=== PATIENT | female | born 1985 | race Caucasian/White ===

== ENCOUNTER → 2019-07-20 | Outpatient (CLI) | payer MEDICAID ==
--- NOTE | 2019-07-20 16:28 | KCIC ---
EXAM: Obstetrics sonogram. HISTORY: dates assessment and anatomy survey. TECHNIQUE: Sonographic imaging of a gravid uterus was performed. COMPARISON: None. FINDINGS: There is a single intrauterine fetus in breech presentation with a normal heart rate of 153 bpm. There is body motion. There is a three-vessel vocal cord with normal insertion. The stomach, kidneys, bladder and spine are unremarkable. The ventricular outflow tracts, lateral ventricles and facial profile are not well seen due to presentation. The anatomic fluid index is normal at 11.3 cm. There is an anterior placenta without evidence of placenta previa. The biparietal diameter is 6.20 cm, corresponding with 25 weeks and 1 day. The head circumference is 23.45 cm, corresponding with 25 weeks and 3 days. The abdominal circumference is 20.29 cm, corresponding with 24 weeks and 6 days. The femoral length is 4.38 cm, corresponding with 24 cm and 3 days. The estimated gestational age patient combined ultrasound measurements is 25 weeks and 0 days. The estimated weight is 734 g. The estimated due date is 11/02/2019. IMPRESSION: 1. Single intrauterine fetus with normal heart rate and estimated gestational age based on ultrasound measurements of 25 weeks and 0 days. 2. Suboptimal evaluation of the the ventricular outflow tracts, lateral ventricles and facial profile due to presentation. Short-term follow-up can be performed to confirm an otherwise unremarkable anatomy survey. Electronically signed by: Julisa Varela MD (07/20/2019 4:25 PM) [id number]
== END | disposition home or self-care (01) ==
LOC: KCIC US 09:41
PROVIDERS: ATTEND Obstetrics & Gynecology
DX: O32.1XX0 Maternal care for breech presentation, not applicable or unspecified (principal); Z3A.25 25 weeks gestation of pregnancy
CPT/HCPCS: 76805